=== PATIENT | male | born 1965 | race Two or more races ===

== ENCOUNTER 2023-07-03 08:22 | Emergency (ER) | payer OTHER ==
[2023-07-03 08:31] VITALS: BP 114/73; PULSE 60; RESP 18; TEMP 98; BMI 28.1
[2023-07-03] MEDS ORDERED: AMOX TR/POT CLAV 875MG/125MG TABLETS (FP) PO ONE (09:41)
[2023-07-03] MEDS ORDERED: AMOX TR/POT CLAV 875MG/125MG TABLETS (FP) ONE (09:42)
== END 2023-07-03 10:11 | disposition home or self-care (01) ==
LOC: JERFT 08:22
DX: H00.015 Hordeolum externum left lower eyelid (principal)
CPT/HCPCS: 99283-25